=== PATIENT | male | born 1930 ===

== ENCOUNTER 2017-09-02 11:45 | Emergency (ER) | payer MEDICARE ==
[2017-09-02 12:40] VITALS: BP 131/80; PULSE 62; RESP 16; TEMP 98.3; O2SAT 96
[2017-09-02] MEDS ORDERED: Tmp-Smz 800 mg-160 mg DS Tab PO STA (13:16)
--- NOTE | 2017-09-02 13:16 | ED PDOC ---
Arrival/HPI - General Chief Complaint: Abnormal Skin Integrity Time Seen by Provider: 09/02/17 11:53 Historian: Patient - History of Present Illness Narrative History of Present Illness (Text): 09/02/17 13:13 A 87 year old male, who denies any significant past medical, presents to the emergency department with complaints of mass on his back that he found 3 weeks ago and now it is draining. The patient notes he's felt feverish for the last week, but never took his temperature. He denies any chest pain, nausea, vomiting , diarrhea, or any other complaints at this time. Time/Duration: > week (x 3 weeks) Symptom Onset: Gradual Symptom Course: Unchanged Activities at Onset: Light Context: Home Past Medical History - Provider Review Nursing Documentation Reviewed: Yes - Cardiac Hx Cardiac Disorders: No - Pulmonary Hx Respiratory Disorders: Yes Hx Asthma: Yes - Neurological Hx Neurological Disorder: No - HEENT Hx HEENT Disorder: Yes Other/Comment: L CORNEAL TRANSPLANT - Renal Hx Renal Disorder: No - Endocrine/Metabolic Hx Endocrine Disorders: No - Hematological/Oncological Hx Blood Disorders: No - Integumentary Hx Dermatological Disorder: Yes - Musculoskeletal/Rheumatological Hx Musculoskeletal Disorders: No - Gastrointestinal Hx Gastrointestinal Disorders: No - Genitourinary/Gynecological Hx Genitourinary Disorders: Yes Hx Prostate Problems: Yes - Psychiatric Hx Psychophysiologic Disorder: No Hx Substance Use: No - Surgical History Hx Eye Surgery: Yes - Anesthesia Hx Anesthesia: Yes Family/Social History - Physician Review Nursing Documentation Reviewed: Yes Family/Social History: No Known Family HX Smoking Status: Former Smoker Hx Alcohol Use: No Hx Substance Use: No Allergies/Home Meds Allergies/Adverse Reactions: Allergies No Known Allergies Allergy (Verified 09/02/17 12:25) Home Medications: Home Meds Medication Instructions Recorded Confirmed Bimatoprost [Lumigan] 1 drop LEFTEYE BID 09/02/17 09/02/17 Tamsulosin [Flomax] 1 cap PO DAILY 09/02/17 09/02/17 Review of Systems - Physician Review All systems were reviewed & negative as marked: Yes - Review of Systems Cardiovascular: absent: Chest Pain Gastrointestinal: absent: Diarrhea, Nausea, Vomiting Physical Exam - Physical Exam Narrative Physical Exam (Text): 09/02/17 13:16 Constitutional: No acute distress. Head: Normocephalic. Atraumatic. Eyes: PERRL. ENT: Moist mucous membranes. Neck: Supple. Cardiovascular: Regular rate. Chest: No tenderness. Respiratory: Clear to auscultation bilaterally. GI: Soft. Nontender. Nondistended. Back: No CVA tenderness. Musculoskeletal: No tenderness or swelling of extremities. Skin: Right flank fluctuant mass with swelling and surrounding erythema, central opening discharging pus. Neurologic: Alert, no focal deficit. Vital Signs Reviewed: Yes Vital Signs Temp Pulse Resp BP Pulse Ox 09/02/17 12:33 98.3 F 62 16 131/80 96 Temperature: Afebrile Blood Pressure: Normal Pulse: Regular Respiratory Rate: Normal Appearance: Positive for: Well-Appearing, Non-Toxic, Comfortable Pain Distress: None Mental Status: Positive for: Alert and Oriented X 3 Medical Decision Making ED Course and Treatment: 09/02/17 13:18 Progress Notes: Procedure: Incision & Drainage Performed by the emergency provider Indication: Abscess Location: Right Flank Preparation: Local infiltration of Lidocaine 1% without Epi was used for anesthesia. Procedure: The most fluctuant portion of the abscess was incised with a #11 scalpel. Approximately 5 cc of pus was obtained. The abscess was packed. A dressing was applied by the emergency provider. Post-Procedure: On exam the abscess is notably less fluctuant. The patient tolerated the procedure well, and there were no complications. Cultured: {YES } Patient will follow up with [facility] [place] [facility] in 2 days, instructed to return to ED if unable to be seen then. First dose antibiotics given here. No fever here, normal vital signs. - Medication Orders Current Medication Orders: Discontinued Medications Cephalexin Monohydrate (Keflex) 500 mg PO STAT STA PRN Reason: Protocol Stop: 09/02/17 13:17 Trimethoprim/Sulfamethoxazole (Bactrim Ds Tab) 1 tab PO STAT STA PRN Reason: Protocol Stop: 09/02/17 13:17 - Scribe Statement The provider has reviewed the documentation as recorded by the Jose Culp Provider Scribe Attestation: All medical record entries made by the Scribe were at my direction and personally dictated by me. I have reviewed the chart and agree that the record accurately reflects my personal performance of the history, physical exam, medical decision making, and the department course for this patient. I have also personally directed, reviewed, and agree with the discharge instructions and disposition. Disposition/Present on Arrival - Present on Arrival Any Indicators Present on Arrival: No History of DVT/PE: No History of Uncontrolled Diabetes: No Urinary Catheter: No History of Decub. Ulcer: No History Surgical Site Infection Following: None - Disposition Have Diagnosis and Disposition been Completed?: Yes Diagnosis: Abscess Disposition: HOME/ ROUTINE Disposition Time: 13:27 Patient Plan: Discharge Patient Problems: Current Active Problems Problem Status Onset Abscess Acute Condition: STABLE Discharge Instructions (ExitCare): Abscess Incision and Drainage (ED) Prescriptions: Cephalexin [cephalexin] 500 mg PO TID #30 cap Sulfamethoxazole/Trimethoprim [Bactrim DS 800 mg-160 mg] 1 tab PO BID #20 tab Referrals: [facility] [Outside] - Follow up with primary Forms: [employer] ([place])
== END 2017-09-02 13:45 | disposition home or self-care (01) ==
LOC: ED 11:45
DX: L02.211 Cutaneous abscess of abdominal wall (principal); Z87.891 Personal history of nicotine dependence

== ENCOUNTER 2018-03-21 13:37 | Inpatient (IN) | payer MEDICARE ==
[2018-03-21] MEDS ORDERED: Sodium Chloride 0.9% 500 ML IV STA (14:40)
--- NOTE | 2018-03-21 14:49 | ED PDOC ---
Arrival/HPI - General Historian: Patient <Zackery Hernandez A - Last Filed: 03/22/18 01:01> <Wilberto Be - Last Filed: 03/23/18 14:55> - General Chief Complaint: Dizziness/Lightheaded Time Seen by Provider: 03/21/18 14:31 - History of Present Illness Narrative History of Present Illness (Text): 03/21/18 14:46 88yo male with pmhx of Asthma and BPH who present with complaint of having near syncopal episode this morning. States he became dizzy when he stood up this morning and "almost passed out". He denies previous history. Denies positional dizziness, chest pain, SOB, focal weakness, visual changes, slurred speech, headache, nausea, vomiting, abdominal pain, any other complaint. (Zackery Hernandez A) Past Medical History - Provider Review Nursing Documentation Reviewed: Yes - Infectious Disease Hx of Infectious Diseases: None - Cardiac Hx Cardiac Disorders: No - Pulmonary Hx Respiratory Disorders: Yes Hx Asthma: Yes - Neurological Hx Neurological Disorder: No - HEENT Hx HEENT Disorder: Yes Other/Comment: L CORNEAL TRANSPLANT - Renal Hx Renal Disorder: No - Endocrine/Metabolic Hx Endocrine Disorders: No - Hematological/Oncological Hx Blood Disorders: No - Integumentary Hx Dermatological Disorder: Yes - Musculoskeletal/Rheumatological Hx Musculoskeletal Disorders: No - Gastrointestinal Hx Gastrointestinal Disorders: No - Genitourinary/Gynecological Hx Genitourinary Disorders: Yes Hx Prostate Problems: Yes - Psychiatric Hx Psychophysiologic Disorder: No Hx Substance Use: No - Surgical History Hx Eye Surgery: Yes - Anesthesia Hx Anesthesia: Yes <Zackery Hernandez A - Last Filed: 03/22/18 01:01> Family/Social History - Physician Review Nursing Documentation Reviewed: Yes Family/Social History: Unknown Family HX Smoking Status: Former Smoker Hx Alcohol Use: No Hx Substance Use: No <Zackery Hernandez A - Last Filed: 03/22/18 01:01> Allergies/Home Meds <Zackery Hernandez A - Last Filed: 03/22/18 01:01> <Wilberto Be - Last Filed: 03/23/18 14:55> Allergies/Adverse Reactions: Allergies No Known Allergies Allergy (Verified 03/22/18 00:01) Home Medications: Home Meds Medication Instructions Recorded Confirmed Bimatoprost [Lumigan] 1 drop LEFTEYE BID 09/02/17 03/21/18 Tamsulosin [Flomax] 1 cap PO DAILY 09/02/17 03/21/18 Albuterol HFA [Ventolin HFA 90 1 puff IH PRN PRN 03/21/18 03/21/18 mcg/actuation (8 g)] Review of Systems - Physician Review All systems were reviewed & negative as marked: Yes - Review of Systems Constitutional: Normal Eyes: Normal ENT: Normal Respiratory: Normal Cardiovascular: Normal Gastrointestinal: Normal Genitourinary Male: Normal Musculoskeletal: Normal Skin: Normal Neurological: Dizziness. absent: Headache, Focal Weakness, Gait Changes, Speech Changes, Facial Droop Endocrine: Normal Hemo/Lymphatic: Normal Psychiatric: Normal <Diru,Happiness A - Last Filed: 03/22/18 01:01> Physical Exam Vital Signs Reviewed: Yes Temperature: Afebrile Blood Pressure: Normal Pulse: Regular Respiratory Rate: Normal Appearance: Positive for: Well-Appearing, Non-Toxic, Comfortable Pain Distress: None Mental Status: Positive for: Alert and Oriented X 3 Finger Stick Blood Glucose: 98 - Systems Exam Head: Present: Atraumatic, Normocephalic Pupils: Present: PERRL Extroacular Muscles: Present: EOMI Conjunctiva: Present: Normal Mouth: Present: Moist Mucous Membranes Neck: Present: Normal Range of Motion Respiratory/Chest: Present: Clear to Auscultation, Good Air Exchange. No: Respiratory Distress, Accessory Muscle Use Cardiovascular: Present: Regular Rate and Rhythm, Normal S1, S2. No: Murmurs Abdomen: No: Tenderness, Distention, Peritoneal Signs Back: Present: Normal Inspection Upper Extremity: Present: Normal Inspection. No: Cyanosis, Edema Lower Extremity: Present: Normal Inspection. No: Edema Neurological: Present: GCS=15, CN II-XII Intact, Speech Normal, Motor Func Grossly Intact, Normal Sensory Function, Normal Cerebellar Funct, Norm Deep Tendon Reflexes, Normal 2Pt Descrimination, Other (No focal neurological deficit ) Skin: Present: Warm, Dry, Normal Color. No: Rashes Psychiatric: Present: Alert, Oriented x 3, Normal Insight, Normal Concentration <Diru,Happiness A - Last Filed: 03/22/18 01:01> Vital Signs Temp Pulse Resp BP Pulse Ox 03/21/18 16:33 50 L 15 137/75 99 03/21/18 14:06 98.2 F 60 18 130/60 96 03/21/18 13:56 98.8 F 68 18 134/74 98 Medical Decision Making <Zackery Hernandez - Last Filed: 03/22/18 01:01> <[place]Wil[place]to - Last Filed: 03/23/18 14:55> ED Course and Treatment: 03/22/18 01:02 PT present to ED for stated history. He was neurologically and hemodynamically stable in ED. Labs was reviewed and wnl CXR NAD EKG Head CT - No acute derangement Secondary to pt's age and complaint of near syncope, he will need MRI and Carotid US. Case was DW Dr. Beltran while she was in ED . she saw pt by the bedside. PT was admitted to her service. (Zackery Hernandez) - Lab Interpretations Lab Results: 03/21/18 14:30 03/21/18 14:30 Lab Results 03/21/18 14:30: Hemoglobin A1c 5.4 03/21/18 14:30: Iron 82, TIBC 309, % Saturation 26 03/21/18 14:30: Triglycerides 79, Cholesterol 144, LDL Cholesterol Direct 70, HDL Cholesterol 47, Vitamin B12 Cancelled, Folate Cancelled 03/21/18 14:30: Sodium 140, Potassium 4.3, Chloride 103, Carbon Dioxide 29, Anion Gap 13, BUN 15, Creatinine 0.8, Est GFR ( Amer) > 60, Est GFR (Non- Af Amer) > 60, Random Glucose 102, Calcium 8.8, Magnesium 2.2, Total Bilirubin 1.3, AST 17, ALT 26, Alkaline Phosphatase 94, Lactate Dehydrogenase 421, Total Creatine Kinase 48, Troponin I < 0.01, Total Protein 6.8, Albumin 4.0, Globulin 2.8, Albumin/Globulin Ratio 1.4 03/21/18 14:30: Urine Color Yellow, Urine Appearance Clear, Urine pH 6.0, Ur Specific Franklin 1.025, Urine Protein Trace H, Urine Glucose (UA) Negative, Urine Ketones Negative, Urine Blood Negative, Urine Nitrate Negative, Urine Bilirubin Negative, Urine Urobilinogen 0.2, Ur Leukocyte Esterase Negative, Urine RBC Negative, Urine WBC 0 - 2, Ur Epithelial Cells None, Urine Bacteria Trace 03/21/18 14:30: PT 11.2, INR 0.98, APTT 30.4 03/21/18 14:30: WBC 7.2, RBC 4.72, Hgb 14.4, Hct 41.9 L, MCV 88.8, MCH 30.5, MCHC 34.4, RDW 12.7, Plt Count 153, MPV 10.5, Gran % 64.5, Lymph % (Auto) 22.1, Levy % (Auto) 4.6, Eos % (Auto) 8.2 H, Baso % (Auto) 0.6, Gran # 4.63, Lymph # ( Auto) 1.6, Levy # (Auto) 0.3, Eos # (Auto) 0.6, Baso # (Auto) 0.04 03/21/18 14:10: POC Glucose (mg/dL) 98 - RAD Interpretation Radiology Orders: 03/21/18 14:39 CHEST PORTABLE [RAD] Stat 03/21/18 14:40 HEAD W/O CONTRAST [CT] Stat - Medication Orders Current Medication Orders: Albuterol Sulfate (Albuterol 0.083% Inhal Candida (2.5 Mg/3 Ml) Ud) 2.5 mg IH [id number] PRN PRN Reason: Shortness of Breath Cefpodoxime Proxetil (Vantin) 200 mg PO Q12 PENDING SALE TO [facility] Last Admin: 03/23/18 09:16 Dose: 200 mg Famotidine (Pepcid) 40 mg PO HS PENDING SALE TO [facility] Last Admin: 03/22/18 21:42 Dose: 40 mg Latanoprost (Xalatan Opht) 0 ml OS HS PENDING SALE TO [facility] Last Admin: 03/22/18 21:43 Dose: 2.5 ml Tamsulosin HCl (Flomax) 0.4 mg PO DAILY PENDING SALE TO [facility] Last Admin: 03/23/18 09:16 Dose: 0.4 mg Discontinued Medications Sodium Chloride (Sodium Chloride 0.9%) 500 mls @ 999 mls/hr IV .Q31M STA Stop: 03/21/18 15:10 Last Admin: 03/21/18 16:32 Dose: 999 mls/hr eMAR Start Stop Document 03/21/18 16:32 MR (Rec: 03/21/18 16:33 MR [id number]) Intravenous Solution Start Date 03/21/18 Start Time 16:33 End Date 03/21/18 End time 17:33 Total Infusion Time 60 Ceftriaxone Sodium (Rocephin 1 Gram Ivpb) 1 gm in 100 mls @ 100 mls/hr IVPB DAILY YUMIKO PRN Reason: Protocol Last Admin: 03/22/18 09:35 Dose: 100 mls/hr eMAR Start Stop Document 03/22/18 09:35 MF (Rec: 03/22/18 09:35 MF [id number]) Intravenous Solution Start Date 03/22/18 Start Time 09:35 Pneumococcal Polyvalent Vaccine (Pneumovax 23 Vaccine) 0.5 ml IM .ONCE ONE Stop: 03/22/18 00:19 Last Admin: 03/22/18 01:46 Dose: Immunization Registry Document 03/22/18 01:46 ST (Rec: 03/22/18 01:46 ST [id number]) Immunization Registry Consent Date 09/16/17 - PA / TECHNICAL DESIGNER / Resident Statement / has reviewed & agrees with the documentation as recorded. <Wilberto Be - Last Filed: 03/23/18 14:55> Disposition/Present on Arrival - Present on Arrival Any Indicators Present on Arrival: No History of DVT/PE: No History of Uncontrolled Diabetes: No Urinary Catheter: No History of Decub. Ulcer: No History Surgical Site Infection Following: None - Disposition Have Diagnosis and Disposition been Completed?: Yes Disposition Time: 14:55 Patient Plan: Admission <Zackery Hernandez - Last Filed: 03/22/18 01:01> <Wilberto Be - Last Filed: 03/23/18 14:55> - Disposition Diagnosis: Near syncope Disposition: HOSPITALIZED Patient Problems: Current Active Problems Problem Status Onset Near syncope Acute Condition: GOOD
[2018-03-21 15:15] LABS: BASO # 0.04 K/mm3 (0.0-2.0); BASO % 0.6 % (0.0-3.0); EOS # 0.6 (0.0-0.7); EOS % 8.2 % (1.5-5.0); GRAN # 4.63 (1.4-6.5); GRAN % 64.5 % (50.0-68.0); HEMOGLOBIN 14.4 g/dL (14.0-18.0); LYMPH # 1.6 (1.2-3.4); LYMPH % 22.1 % (22.0-35.0); MEAN CELL VOLUME 88.8 fl (80.0-105.0); MEAN CORPUSCULAR HEMOGLOBIN 30.5 pg (25.0-35.0); MEAN CORPUSCULAR HGB CONC 34.4 g/dl (31.0-37.0); MEAN PLATELET VOLUME 10.5 fl (7.0-11.0); MONO # 0.3 (0.1-0.6); MONO % 4.6 % (1.0-6.0); RBC 4.72 10^6/uL (3.5-6.1); RED CELL DISTRIBUTION WIDTH 12.7 % (11.5-14.5); WHITE BLOOD COUNT 7.2 10^3/ul (4.5-11.0)
[2018-03-21 15:17] LABS: URINE APPEARANCE CLEAR (CLEAR); URINE BILIRUBIN NEGATIVE (NEGATIVE); URINE BLOOD NEGATIVE (NEGATIVE); URINE COLOR YELLOW (YELLOW); URINE GLUCOSE (UA) NEGATIVE (NEGATIVE); URINE LEUKOCYTE ESTERASE NEGATIVE Leu/uL (NEGATIVE); URINE PROTEIN TRACE mg/dL (<30 mg/dL); URINE UROBILINOGEN 0.2 E.U./dL (<1 E.U./dL)
[2018-03-21 15:19] LABS: ALB/GLOB RATIO 1.4 (1.1-1.8); ALT/SGPT 26 U/L (7-56); AST/SGOT 17 U/L (17-59); BLOOD UREA NITROGEN 15 mg/dL (7-21); CALCIUM 8.8 mg/dL (8.4-10.5); GFR AFRICAN-AMERICAN > 60; GFR NON-AFRICAN AMERICAN > 60; INR 0.98; PARTIAL THROMBOPLASTIN TIME 30.4 Seconds (25.1-36.5); PROTHROMBIN TIME 11.2 SECONDS (9.4-12.5)
[2018-03-21 15:22] LABS: URINE BACTERIA TRACE (NEG); URINE RBC NEGATIVE /hpf (0-2); URINE WBC 0 - 2 /hpf (0-6)
[2018-03-21 15:30] LABS: TROPONIN I < 0.01 ng/mL
--- NOTE | 2018-03-21 15:43 | CT ---
Date of service: 03/21/2018 PROCEDURE: CT HEAD WITHOUT CONTRAST. HISTORY: Dizziness COMPARISON: None available. TECHNIQUE: Axial computed tomography images were obtained through the head/brain without intravenous contrast. Radiation dose: Total exam DLP = 953.53 mGy-cm. This CT exam was performed using one or more of the following dose reduction techniques: Automated exposure control, adjustment of the mA and/or kV according to patient size, and/or use of iterative reconstruction technique. FINDINGS: HEMORRHAGE: No intracranial hemorrhage. BRAIN: Rose-white matter differentiation is preserved. There is no mass, mass effect or abnormal extra-axial fluid collection. There is no territorial infarction. The midline sagittal structures are normal. VENTRICLES: There is mild age-related global parenchymal volume loss and proportionate enlargement of the ventricles and cortical sulci. CALVARIUM: The skull base and calvarium are normal. PARANASAL SINUSES: There is moderate chronic ethmoid and maxillary sinusitis, worse in the right maxillary sinus. MASTOID AIR CELLS: Predominantly clear. OTHER FINDINGS: None. IMPRESSION: No acute intracranial abnormality. If there is a persistent focal neurologic deficit and an ongoing clinical concern for acute infarction, an MRI of the brain without intravenous contrast would be a more sensitive modality for evaluation of hyperacute/acute ischemic infarction. Mild age-related global parenchymal volume loss. Chronic ethmoid and maxillary sinusitis, worse in the right maxillary sinus with
--- NOTE | 2018-03-21 17:44 | RAD ---
Date of service: 03/21/2018 HISTORY: admission COMPARISON: 07/20/2017. FINDINGS: LUNGS: No active pulmonary disease. PLEURA: No significant pleural effusion identified, no pneumothorax apparent. CARDIOVASCULAR: No radiographic findings to suggest acute or significant cardiovascular disease. OSSEOUS STRUCTURES: No significant abnormalities. VISUALIZED UPPER ABDOMEN: Normal. OTHER FINDINGS: None. IMPRESSION: No active disease. No significant interval change compared to the prior examination(s).
[2018-03-21] MEDS ORDERED: Albuterol 0.083% Inhal Sol (2.5 mg/3 mL) UD IH PRN (19:57)
[2018-03-21 20:58] LABS: HDL CHOLESTEROL 47 mg/dL (29-60); IRON 82 ug/dL (45-180)
[2018-03-21 21:08] LABS: % IRON SATURATION 26 % (20-55); TOTAL IRON BINDING CAPACITY 309 ug/dL (261-462)
[2018-03-21 21:09] LABS: LDL CHOLESTEROL 70 mg/dL (0-129)
[2018-03-21] MEDS: Latanoprost 2.5 ml Opht Soln OS SCH (21:46)
--- NOTE | 2018-03-21 21:46 | CARD ---
APPROVED REPORT Date of service: 03/21/2018 EKG Measurement Heart [id number] <Conclusion> Unusual P axis and short CA, probable junctional rhythm with premature atrial complexes Left axis deviation Abnormal ECG
[2018-03-22 00:18] VITALS: BMI 26.6
[2018-03-22] MEDS ORDERED: Pneumococcal 23-Valent Vaccine IM ONE (00:18)
[2018-03-22 07:06] LABS: HEMOGLOBIN 13.9 g/dL (14.0-18.0); MEAN CELL VOLUME 88.3 fl (80.0-105.0); MEAN PLATELET VOLUME 10.8 fl (7.0-11.0); RBC 4.63 10^6/uL (3.5-6.1); RED CELL DISTRIBUTION WIDTH 12.8 % (11.5-14.5); WHITE BLOOD COUNT 6.4 10^3/ul (4.5-11.0)
--- NOTE | 2018-03-22 07:18 | HP ---
date 03/21/18 Copied To: Zulma Beltran MD Attending MD: Zulma Beltran MD CHIEF COMPLAINT: Dizziness, lightheadedness. HISTORY OF PRESENT ILLNESS: Mr. Pete Murdock is an 88-year-old male with past medical history of asthma, BPH, came to the emergency room having near syncope episode. This morning, the patient states that he became dizzy when he stood up . He denies frequencies. He denies positional dizziness. No fever, no chills. No shortness of breath, no focal weakness, no vision changes, no slurring of speech. No headache, nausea, vomiting, abdominal pain or any other complaints. Discussion done with the physician assistant art director, PAST MEDICAL HISTORY: Asthma, cornea transplant, history of prostate problem, eye surgery. FAMILY HISTORY: Father and mother, noncontributory. HABITS: Former smoker. No drugs, no ethanol. ALLERGIES: THE PATIENT IS NOT ALLERGIC WITH ANY MEDICATIONS. HOME MEDICATIONS: Flomax, Ventolin. REVIEW OF SYSTEMS: The patient was seen and examined on the bedside in the emergency room, looking comfortable. Mainly complaining about dizziness and feeling of passing out. No focal weakness, no gait changes. No speech changes. No facial droops. No fever, no chills. PHYSICAL EXAMINATION VITAL SIGNS: Temperature 98.8, pulse 58, respiratory rate 18, blood pressure 134/74, pulse oximetry 98%. HEENT: Head normocephalic, atraumatic. Eyes, PERRLA. Extraocular muscles intact. Conjunctivae clear. Nose patent. Mucous membrane moist. NECK: Supple. No carotid bruit, JVD, or thyromegaly. CHEST: No chest pain. HEART: S1 and S2 positive. LUNGS: Clear to auscultation. ABDOMEN: Soft. Bowel sounds present. No organomegaly. EXTREMITIES: No edema. No cyanosis. NEUROLOGIC: The patient is awake and alert. Moving all four extremities. No focal deficit. LABORATORY DATA: White blood cell 7.2, hemoglobin 14.4, hematocrit 41.9, platelets 153. Sodium 140, potassium 4.3, BUN 15, creatinine 0.8. Liver function test within normal limits. Protein in the urine. ASSESSMENT AND PLAN: Mr. Pete Murdock is an 88-year-old male with proteinuria, history of asthma, hypertension, benign prostatic hypertrophy, came with near syncope. CAT scan of the head done. No acute intracranial abnormalities. Mild age-related global parenchymal volume loss, chronic ethmoid and maxillary sinusitis, worse in the right maxillary sinus. We will start with antibiotics. Gastrointestinal and deep venous thrombosis prophylaxis. We will start him on home medications. Repeat labs. We will follow up. Zulma Beltran MD MTDIva
[2018-03-22 07:33] LABS: BLOOD UREA NITROGEN 14 mg/dL (7-21); CALCIUM 8.6 mg/dL (8.4-10.5); GFR AFRICAN-AMERICAN > 60; GFR NON-AFRICAN AMERICAN > 60
[2018-03-22] MEDS ORDERED: cefTRIAXone 1 gm 1 GM/100 ML BAG IVPB SCH (10:00)
--- NOTE | 2018-03-22 10:40 | US ---
PROCEDURE: Bilateral carotid artery duplex ultrasound HISTORY: Carotid stenosis dizziness PHYSICIAN(S): Andrea Gutierrez MD. TECHNIQUE: Duplex sonography and color-flow Doppler were used to evaluate the carotid bifurcations and limited segments of the vertebral arteries bilaterally. The exam is somewhat limited by tortuous vessels. FINDINGS: There is mild smooth heterogeneous plaque noted at the carotid bifurcations bilaterally. The peak systolic velocity in the proximal right internal carotid artery is 59 cm/sec. This corresponds to a 20 to 39% proximal right ICA stenosis. Normal systolic velocities are noted in the proximal right external carotid artery. There is antegrade flow in the right vertebral artery. The peak systolic velocity in the proximal left internal carotid artery is 67 cm/sec. This corresponds to a 20 to 39% proximal left ICA stenosis. Normal systolic velocities are noted in the proximal left external carotid artery. There is antegrade flow in the left vertebral artery. IMPRESSION: 1. Bilateral 20-39% proximal ICA stenoses. 2. Antegrade flow in both vertebral arteries.
--- NOTE | 2018-03-22 11:06 | MRI ---
Date of service: 03/22/2018 PROCEDURE: MRI BRAIN WITHOUT CONTRAST HISTORY: dizz COMPARISON: None available. TECHNIQUE: Multiplanar, multisequence MR images of the brain were obtained without intravenous contrast enhancement. FINDINGS: HEMORRHAGE: None DWI: No evidence of an acute or early subacute infarction. BRAIN PARENCHYMA: No mass effect or edema. No atrophy or chronic microvascular ischemic changes. VENTRICLES: Unremarkable. No hydrocephalus. CRANIUM: Unremarkable. ORBITS: Grossly unremarkable. PARANASAL SINUSES/MASTOIDS: There is mucosal thickening in the right maxillary sinus and the ethmoid sinuses bilaterally VASCULAR SYSTEM: Skull base flow voids intact. OTHER FINDINGS: None. IMPRESSION: No acute intracranial findings
[2018-03-22 13:07] LABS: FOLATE 8.2 ng/mL
--- NOTE | 2018-03-22 16:24 | CON ---
Copied To: Tre Turk MD Attending MD: Tre Turk MD DATE: 03/22/2018 NEUROLOGY CONSULTATION CHIEF COMPLAINT: Dizziness. HISTORY OF PRESENT ILLNESS: This is an 88-year-old man with past medical history of asthma, BPH who complained of having near syncopal events in terms of feeling dizzy and lightheaded, when he stood up in the morning almost felt like he was going to pass out. No history of any seizures. His MRI of the brain showed no acute intracranial abnormality. He had a low heart rate ranging from 38-59 indicating severe bradycardia likely the cause of his symptoms. Carotid Doppler showed 20%-39% proximal ICA stenosis with antegrade flow in the vertebral arteries bilaterally. PAST MEDICAL HISTORY: As above. SOCIAL HISTORY: No illicit drug use, smoking, or EtOH abuse. ALLERGIES: NO KNOWN DRUG ALLERGIES. MEDICATIONS: Reviewed by nurse per reconciliation sheet. REVIEW OF SYSTEMS: A 14-point review of systems is negative except as per the HPI. LABORATORY DATA: Sodium is 140, potassium 4, chloride 107, carbon dioxide 28, BUN of 14, creatinine of 0.8. Random glucose of 84. A1c of 5.4. B12 of 342. PHYSICAL EXAMINATION VITAL SIGNS: Temperature 97.8, pulse rate of 38, blood pressure 120/49, respiratory rate of 18, oxygen saturation 97% via room air. GENERAL: The patient is sitting up in bed, in no acute distress. HEENT: Head is atraumatic, normocephalic. PERRLA. Extraocular muscles intact. NECK: Supple. No JVD, no adenopathy noted. LUNGS: Clear to auscultation. No adventitious sounds. HEART: S1 and S2, normal rate and rhythm. No murmurs, rubs or gallops. ABDOMEN: Soft, nontender, nondistended. Bowel sounds present. EXTREMITIES: No clubbing, no cyanosis. Peripheral pulses are 2+ felt bilaterally. NEUROLOGIC: The patient is alert, oriented to person, place, month and year. Speech is fluent without any errors. Cranial nerves II through XII intact. Motor exam: Moves all extremities equally. Toes are downgoing bilaterally. Sensory exam: Light touch, pinprick, proprioception and vibration intact. DTRs are 2+ throughout. Coordination: [id number]-mr-erar intact. Gait is deferred for now. ASSESSMENT AND PLAN: This is an 88-year-old man with history of benign prostatic hypertrophy, asthma who presented with dizziness in terms of near syncopal event, found to have significant bradycardia. At this time, I feel like the near syncopal event/dizziness is most likely secondary to symptomatic bradycardia. We will recommend Cardiology followup and echocardiogram. MRI of the brain showed no acute intracranial abnormality. Neuro exam is nonfocal. Carotid Doppler showed no significant hemodynamic stenosis. At this time, we recommend: 1. Baby aspirin 81 mg p.o. daily. 2. Hold any beta blockers given that the patient has bradycardia. 3. Cardiology consult/followup in regards to his underlying bradycardia and continue with current present medical management, PT/OT assessment and keep systolic blood pressure of 130s-140s and diastolic 70s-80s. Thank you for this consult. Tre Turk MD
--- NOTE | 2018-03-22 17:26 | CON ---
Copied To: Tray Francis MD Attending MD: Tray Francis MD DATE: 03/22/2018 LOCATION: The patient in room 272, bed 2. REASON FOR CONSULTATION: Dizziness, near syncope. HISTORY OF PRESENT ILLNESS: The patient is an 88-year-old male admitted with the history that he is getting episodes of dizziness in which sometimes room starts spinning and sometimes he feels like that he is going to pass out, but he had no syncopal episode. Denies any nausea, vomiting, headache, palpitations, chest pain, shortness of breath associated with these episodes. The patient known to have asthma. The patient denies any history of exertional chest pains or PND. PAST MEDICAL HISTORY: Positive for asthma, has cornea transplant. The patient is also being treated for prostate problems. PERSONAL HISTORY: The patient used to smoke 3 packs a day for about 40 years, he stopped roughly about 30 years ago. Denies drinking. ALLERGIES: THE PATIENT DENIES ANY ALLERGY TO MEDICATIONS. HE SAYS SOMETIMES HE HAS ALLERGY TO DUST. MEDICATIONS AT HOME: The patient was on Ventolin and Flomax. REVIEW OF SYSTEMS: All the systems were reviewed. Positive mentioned in the history, others were negative. PHYSICAL EXAMINATION: VITAL SIGNS: Blood pressure 147/82, respirations 18, pulse 53, temperature 97.8. HEENT: Head is normocephalic. Eyes: Pupils normal. Conjunctivae normal. Nose and throat normal. NECK: JVP low, carotids equal. THORAX: AP diameter normal. CARDIOVASVULAR: S1, S2. LUNGS: Clear. ABDOMEN: Soft, no tenderness, no organomegaly. Bowel sounds normal. EXTREMITIES: No clubbing, no cyanosis. LABORATORY DATA: Shows WBC 6.4, hemoglobin 13.9, hematocrit 40.9, platelets 148. Sodium 140, potassium 4, BUN 14, creatinine 0.8, triglycerides 79, cholesterol 144, HDL 47, LDL 70, TSH 1.84. EKG showed junctional rhythm and PJC's. Heart rate on cardiogram 57 per minute. Chest x-ray no active disease. CAT scan of the head, no acute intracranial abnormality, age-related global parenchymal volume loss. Carotid ultrasound showed bilateral 20 to 39% proximal ICA stenosis. Brain MRI showed no acute intracranial findings. DIAGNOSES: Dizziness, near syncope, junctional rhythm on EKG, rule out cardiac arrhythmia. PLAN: The patient on telemetry. We will continue to monitor him closely and also with 24-hour Holter monitor and do an echocardiogram. The patient on famotidine 40 mg p.o. at bedtime, Vantin 200 mg every 12 hours. We will monitor with you and follow with you. Tray Francis MD
--- NOTE | 2018-03-22 17:31 | CARD ---
APPROVED REPORT Date of service: 03/22/2018 EXAM: Two-dimensional and M-mode echocardiogram with Doppler and color Doppler. INDICATION Syncope 2D DIMENSIONS Left Atrium (2D)4.1 (1.6-4.0cm)IVSd1.2 (0.7-1.1cm) LVDd4.5 (3.9-5.9cm)PWd1.1 (0.7-1.1cm) M-Mode DIMENSIONS Aortic Root3.60 (2.2-3.7cm)Aortic Cusp Exc.1.90 (1.5-2.0cm) Aortic Valve AoV Peak Oimegbmu711.0cm/Petey Peak GR.9mmHg Mitral Valve MV E Sifqdkxj70.2cm/sMV A Oidqzdln71.3cm/sE/A ratio0.7 TDI Lateral E' Peak V6.63cm/sMedial E' Peak V5.36cm/sE/Lateral E'8.8 E/Medial E'10.9 Pulmonary Valve PV Peak Qngstxjw45.8cm/sPV Peak Grad.1mmHg Tricuspid Valve TR Peak Xswjzogp221hi/sRAP WWHZLYCJ45ilScVA Peak Gr.39mmHg SIOX11aeQg LEFT VENTRICLE The left ventricle is normal size. There is borderline concentric left ventricular hypertrophy. mildly decreased to pipo Normal. EF-45-50% There is mild hypokinesis in the apical anterior wall. Transmitral Doppler flow pattern is Grade III-reversible restrictive diastolic dysfunction. No left ventricle thrombus noted on this study. There is no ventricular septal defect visualized. There is no left ventricular aneurysm. There is no mass noted in the left ventricle. RIGHT VENTRICLE The right ventricle is normal size. There is normal right ventricular wall thickness. The right ventricular systolic function is normal. ATRIA The left atrium is borderline dilated. The right atrium size is normal. The interatrial septum is intact with no evidence for an atrial septal defect. AORTIC VALVE The aortic valve is thickened but opens well. There is trace aortic regurgitation. There is no aortic valvular stenosis. There is no aortic valvular vegetation. MITRAL VALVE The mitral valve is thickened but opens well. Mitral regurgitation is mild to moderate ( multiple Jets) There is no mitral valve stenosis. There is no evidence of mitral valve prolapse. TRICUSPID VALVE The tricuspid valve leaflets are thickened , but open well. There is mild to Moderate tricuspid regurgitation.RVSP-49 mmof Hg. There is no tricuspid valve stenosis. There is no tricuspid valve prolapse or vegetation. PULMONIC VALVE The pulmonary valve is normal in structure. Trivial PI There is no pulmonic valvular stenosis. GREAT VESSELS The aortic root is normal in size. The ascending aorta is normal in size. The pulmonary artery is normal. The IVC is normal in size and collapses >50% with inspiration. PERICARDIAL EFFUSION Trivial pleural effusion. There is no pericardial effusion. <Conclusion> The left ventricle is normal size. There is borderline concentric left ventricular hypertrophy. mildly decreased to pipo Normal. EF-45-50% Mitral regurgitation is mild to moderate ( multiple Jets) There is mild to Moderate tricuspid regurgitation.RVSP-49 mmof Hg. The IVC is normal in size and collapses >50% with inspiration. There is no pericardial effusion.
[2018-03-22] MEDS: Latanoprost 2.5 ml Opht Soln OS SCH (21:43)
--- NOTE | 2018-03-23 04:25 | PN ---
Copied To: Zulma Beltran MD Attending MD: Zulma Beltran MD DATE: 03/22/2018 SUBJECTIVE: Patient looks comfortable. Dizziness is better. Lightheadedness better. No shortness of breath. No chest pain. No fever. No chills. No hematuria. No hematochezia. No swelling of the legs. A 12-point review of systems is negative except above. PHYSICAL EXAMINATION: VITAL SIGNS: Temperature 97.9, pulse 38, blood pressure 120/49, respiratory rate 18, oxygen saturation 97% on room air. HEENT: Head normocephalic, atraumatic. Eyes, PERRLA. Extraocular muscles intact. Conjunctivae clear. Nose patent. Mucous membrane moist. NECK: Supple. No carotid bruit, JVD or thyromegaly. CHEST: Bilaterally symmetrical. HEART: S1 and S2 positive. Normal rate and rhythm. LUNGS: Clear to auscultation. No adventitious sounds. ABDOMEN: Soft. Bowel sounds present. No organomegaly. EXTREMITIES: No edema. No cyanosis. NEUROLOGIC: Patient is awake, alert, oriented x3. Moving all 4 extremities. LABORATORY DATA: Sodium 140, potassium 4, BUN 14, creatinine 0.8, glucose 84. Hemoglobin A1c is 5.4. B12 of 14. ASSESSMENT AND PLAN: Mr. Pete Murdock is an 88-year-old male with benign prostatic hypertrophy, asthma, came with dizziness, in terms of near syncope, found to have significant bradycardia. At this time, I feel like near syncopal event. Dizziness most likely secondary to the symptomatic bradycardia. Brazing Machine Operator is on the case. Holter monitor is put, we will wait 24 hours. MRI of the brain showed no acute intracranial abnormalities. Neurology exam is nonfocal. Carotid Doppler showed no significant hemodynamic stenosis. Patient's neurologist recommended aspirin, hold beta-blockers. Brazing Machine Operator is on the case for bradycardia. Physical therapy and occupational therapy. History of hypertension. Reviewed Dr. Tre Turk's notes. Reviewed Dr. Tray Francis's notes also. Junctional rhythm on EKG, rule out cardiac arrhythmias. Continue to monitor very closely, a 24-hour Holter monitor, then we will do an echocardiography. Gastrointestinal and deep vein thrombosis prophylaxes. Continue famotidine for gastrointestinal prophylaxis. Ventolin because history of, asthma and hypertension. Repeat labs. We will follow up. Zulma Beltran MD
[2018-03-23] MEDS: Cefpodoxime (Vantin) 200 mg Tab PO SCH ×2 (09:16→21:34)
[2018-03-23] MEDS: Latanoprost 2.5 ml Opht Soln OS SCH (21:35)
[2018-03-24] MEDS: Cefpodoxime (Vantin) 200 mg Tab PO SCH ×2 (10:05→21:33)
[2018-03-24] MEDS: Latanoprost 2.5 ml Opht Soln OS SCH (21:34)
--- NOTE | 2018-03-24 22:54 | PN ---
Copied To: Zulma Beltran MD Attending MD: Zulma Beltran MD DATE: 03/24/2018 SUBJECTIVE: Patient is an 88-year-old male. Patient is looking comfortable. No nausea, vomiting, diarrhea. No hematuria or hematochezia. No swelling of the legs. No chest pain. No palpitation. No headache or dizziness. No fever. No chills. PHYSICAL EXAMINATION: VITAL SIGNS: Temperature 98.9, pulse 80, blood pressure 151/87, respiratory rate 20. HEENT: Head: Normocephalic, atraumatic. Eyes: PERRLA. Extraocular muscles intact. Conjunctivae clear. Nose patent. Mucous membrane moist. NECK: Supple. No carotid bruit, JVD, or thyromegaly. CHEST: Bilaterally symmetrical. HEART: S1 and S2 positive. LUNGS: Clear to auscultation. ABDOMEN: Soft. Bowel sounds present. No organomegaly. EXTREMITIES: No edema. No cyanosis. NEUROLOGIC: Patient is awake and alert. Moving all 4 extremities. No focal deficit. MEDICATIONS: Albuterol, Flomax, Pepcid, Vantin, LABORATORY DATA: White blood cells 6.4, hemoglobin 13.9, hematocrit 40.9, platelets 148. Sodium 140, potassium 4, BUN 14, creatinine 0.8, glucose 84. ASSESSMENT AND PLAN: Mr. Pete Murdock is an 88-year-old male with anemia, proteinuria, history of asthma, benign prostatic hypertrophy. Came with near syncopal attacks in terms of feeling dizzy and lightheadedness. Seen by the payloader machine operator and neurologist. Baby aspirin given. Hold beta-blockers. Patient has symptomatic bradycardia. Got Holter monitor, results are pending. Out of bed. Physical therapy. We will follow up. Zulma Beltran MD MTDD
--- NOTE | 2018-03-25 07:59 | CP.PCM.PN ---
Subjective - Date & Time of Evaluation Date of Evaluation: 03/25/18 Time of Evaluation: 06:30 - Subjective Subjective: Awake, alert , denies any dizziness, constipated Reason for consultation and follow up: Cardiac evaluation of syncope, history of asthma nad BPH Seen and examined by me and Dr. Rosales 88yo male with pmhx of Asthma and BPH who present with complaint of having near syncopal episode this morning. States he became dizzy when he stood up this morning and "almost passed out". He denies previous history. Denies positional dizziness, chest pain, SOB, focal weakness, visual changes, slurred speech, headache, nausea, vomiting, abdominal pain, any other complaint. Objective - Vital Signs/Intake and Output Vital Signs (last 24 hours): Temp Pulse Resp BP Pulse Ox 97.9 F 66 20 145/94 H 99 03/25/18 05:54 03/25/18 05:54 03/25/18 05:54 03/25/18 05:54 03/25/18 05:54 Intake and Output: 03/25/18 03/25/18 06:59 18:59 Intake Total 120 Balance 120 - Medications Medications: Current Medications Albuterol Sulfate (Albuterol 0.083% Inhal Candida (2.5 Mg/3 Ml) Ud) 2.5 mg IH [id number] PRN PRN Reason: Shortness of Breath Cefpodoxime Proxetil (Vantin) 200 mg PO Q12 [facility] Last Admin: 03/24/18 21:33 Dose: 200 mg Famotidine (Pepcid) 40 mg PO HS [facility] Last Admin: 03/24/18 21:33 Dose: 40 mg Latanoprost (Xalatan Opht) 0 ml OS HS [facility] Last Admin: 03/24/18 21:34 Dose: 2.5 ml Tamsulosin HCl (Flomax) 0.4 mg PO DAILY [facility] Last Admin: 03/24/18 10:05 Dose: 0.4 mg - Labs Labs: 03/22/18 06:30 03/22/18 06:30 PT 11.2 SECONDS (9.4-12.5) 03/21/18 14:30 INR 0.98 03/21/18 14:30 APTT 30.4 Seconds (25.1-36.5) 03/21/18 14:30 - Constitutional Appears: No Acute Distress - Head Exam Head Exam: NORMOCEPHALIC - Eye Exam Eye Exam: Normal appearance - ENT Exam ENT Exam: Mucous Membranes Moist - Respiratory Exam Respiratory Exam: Decreased Breath Sounds, Clear to Ausculation Bilateral, NORMAL BREATHING PATTERN - Cardiovascular Exam Cardiovascular Exam: Bradycardia, +S1, +S2 - GI/Abdominal Exam GI & Abdominal Exam: Soft, Normal Bowel Sounds Additional comments: constipated - Neurological Exam Neurological Exam: Alert, Awake, Oriented x3 - Psychiatric Exam Psychiatric exam: Normal Affect - Skin Skin Exam: Intact, Warm Assessment and Plan - Assessment and Plan (Free Text) Assessment: A 88 year old male who came in to the ER due to near syncope. History of asthma and BPH, left corneal transplant,former smoker. Plan: On Holter monitor, will follow result Telemetry sinus bradycardia -49's Echo showed LVEF of 45-50% Moderate MR/TR Carotid studies 20-39% proximal ICA stenosis Blood pressure controlled Continue current medications Continue current treatment Will follow up plan and treatment discussed with Dr. Rosales
[2018-03-25] MEDS ORDERED: Magnesium Citrate Oral SOL (300 ml) PO ONE (08:24)
--- NOTE | 2018-03-25 08:49 | PN ---
Copied To: Zulma Beltran MD Attending MD: Zulma Beltran MD DATE: 03/23/2018 SUBJECTIVE: Patient is an 88-year-old male. Patient is looking comfortable. No nausea, vomiting, or diarrhea. No hematuria or hematochezia. No swelling of the leg. No chest pain. No headache. No dizziness. No fever. No chills. PHYSICAL EXAMINATION: VITAL SIGNS: Temperature 97.9, pulse 45, blood pressure 130/73, respiratory rate 20. HEENT: Head: Normocephalic, atraumatic. Eyes: PERRLA. Extraocular muscles intact. Conjunctivae clear. Nose patent. Mucous membrane moist. NECK: Supple. No carotid bruit. No JVD or thyromegaly. CHEST: Bilaterally symmetrical. HEART: S1 and S2 positive. LUNGS: Clear to auscultation. ABDOMEN: Soft. Bowel sounds present. No organomegaly. EXTREMITIES: No edema. No cyanosis. NEUROLOGIC: Patient is awake and alert. Moving all 4 extremities. No focal deficit. MEDICATIONS: Albuterol, Flomax, Pepcid, Vantin, Xalatan ophthalmic solution. LABORATORY DATA: White blood cells 6.4, hemoglobin 13.9, hematocrit 40.9, platelets 148. Sodium 140, potassium 4, BUN 14, creatinine 0.8, glucose 84. ASSESSMENT AND PLAN: Mr. Pete Murdock is an 88-year-old male with anemia, symptomatic bradycardia, history of benign prostatic hypertrophy, asthma, near syncope. According to the neurologist, dizziness looks like secondary to maybe bradycardia or hypotension. Cardiovascular Specialist is on the case. Holter monitor provided. MRI of the brain, bilateral carotid Doppler of the neck done. Neurologist is on the case. Gastrointestinal and deep vein thrombosis prophylaxes. Repeat labs. We will follow up. Zulma Beltran MD
[2018-03-25] MEDS: Cefpodoxime (Vantin) 200 mg Tab PO SCH ×2 (09:02→23:30)
--- NOTE | 2018-03-25 22:03 | PN ---
Copied To: Zulma Beltran MD Attending MD: Zulma Beltran MD DATE: 03/25/2018 SUBJECTIVE: The patient is seen and examined on the bedside, looking comfortable. No nausea, vomiting, diarrhea. No hematuria or hematochezia. No swelling of the legs. No chest pain. No palpitation. No headache. Dizziness is better, but he is becoming dizzy when he is standing up and having feeling of passing out once in a while. No fever. No chills. PHYSICAL EXAMINATION: VITAL SIGNS: Temperature 97.9, pulse 66, respiratory rate 20, blood pressure 147/94, pulse oximetry 99. HEENT: Head normocephalic, atraumatic. Eyes PERRLA. Extraocular muscles are intact. Conjunctivae clear. Nose patent. Mucous membrane moist. NECK: Supple. No carotid bruit. No JVD or thyromegaly. CHEST: Bilaterally symmetrical. HEART: S1 and S2 positive. LUNGS: Clear to auscultation. ABDOMEN: Soft. Bowel sounds positive. No organomegaly. EXTREMITIES: No edema. No cyanosis. NEUROLOGICAL: The patient is awake and alert. Moving all 4 extremities. No focal deficits. MEDICATIONS: Albuterol, Vantin, Pepcid, eye drops, Flomax. LABORATORY DATA: White blood cells are 6.4, hemoglobin 13.9, hematocrit 40.9, platelets 148. Sodium 140, potassium 4, BUN 14, creatinine 0.8, glucose 84. ASSESSMENT AND PLAN: Mr. Pete Murdock, 88-year-old male with anemia. Came to the emergency room due to near syncope, history of asthma, benign prostatic hypertrophy, left corneal transplant, former smoker, on Holter monitor. Telemetry shows sinus bradycardia, may be that his feelings are due to symptomatic bradycardia. Echocardiogram shows left ventricular ejection fraction of 45-50, moderate mitral regurgitation and tricuspid regurgitation. Carotid study shows 20-39% proximal internal carotid artery stenosis. Continue current medication asked by Cardiology. Neurologist is on the case also. The patient is seen by Dr. Tre Turk. Physical therapy. Out of bed. Repeat labs. We will follow up. Zulma Beltran MD [facility] # [id number]
[2018-03-25] MEDS: Latanoprost 2.5 ml Opht Soln OS SCH (23:30)
[2018-03-26 07:10] LABS: HEMOGLOBIN 14.1 g/dL (14.0-18.0); MEAN CELL VOLUME 88.4 fl (80.0-105.0); MEAN CORPUSCULAR HEMOGLOBIN 29.8 pg (25.0-35.0); MEAN CORPUSCULAR HGB CONC 33.7 g/dl (31.0-37.0); MEAN PLATELET VOLUME 10.4 fl (7.0-11.0); RBC 4.73 10^6/uL (3.5-6.1); RED CELL DISTRIBUTION WIDTH 12.7 % (11.5-14.5); WHITE BLOOD COUNT 6.8 10^3/ul (4.5-11.0)
[2018-03-26 07:24] LABS: BLOOD UREA NITROGEN 17 mg/dL (7-21); CALCIUM 8.5 mg/dL (8.4-10.5); GFR AFRICAN-AMERICAN > 60; GFR NON-AFRICAN AMERICAN > 60
--- NOTE | 2018-03-26 07:40 | CP.PCM.PN ---
Subjective - Date & Time of Evaluation Date of Evaluation: 03/26/18 Time of Evaluation: 06:40 - Subjective Subjective: Awake, alert , ambulating to bathroom Reason for consultation and follow up: Cardiac evaluation of syncope, history of asthma and BPH Seen and examined by me and Dr. Rosales Objective - Vital Signs/Intake and Output Vital Signs (last 24 hours): Temp Pulse Resp BP Pulse Ox 98.2 F 58 L 16 144/72 98 03/26/18 06:00 03/26/18 06:00 03/26/18 06:00 03/26/18 06:00 03/26/18 06:00 Intake and Output: 03/26/18 03/26/18 06:59 18:59 Intake Total 440 Balance 440 - Medications Medications: Current Medications Albuterol Sulfate (Albuterol 0.083% Inhal Candida (2.5 Mg/3 Ml) Ud) 2.5 mg IH [id number] PRN PRN Reason: Shortness of Breath Cefpodoxime Proxetil (Vantin) 200 mg PO Q12 [facility] Last Admin: 03/25/18 23:30 Dose: 200 mg Cyanocobalamin (Vitamin B12 1000 Mcg Tab) 1,000 mcg PO DAILY [facility] Famotidine (Pepcid) 40 mg PO HS [facility] Last Admin: 03/25/18 23:30 Dose: 40 mg Latanoprost (Xalatan Opht) 0 ml OS HS [facility] Last Admin: 03/25/18 23:30 Dose: 2.5 ml Tamsulosin HCl (Flomax) 0.4 mg PO DAILY [facility] Last Admin: 03/25/18 09:03 Dose: 0.4 mg - Labs Labs: 03/26/18 06:30 03/26/18 06:30 PT 11.2 SECONDS (9.4-12.5) 03/21/18 14:30 INR 0.98 03/21/18 14:30 APTT 30.4 Seconds (25.1-36.5) 03/21/18 14:30 - Constitutional Appears: No Acute Distress - Eye Exam Eye Exam: Normal appearance - ENT Exam ENT Exam: Mucous Membranes Moist - Respiratory Exam Respiratory Exam: Decreased Breath Sounds, NORMAL BREATHING PATTERN - Cardiovascular Exam Cardiovascular Exam: +S1, +S2 - GI/Abdominal Exam GI & Abdominal Exam: Soft, Normal Bowel Sounds - Extremities Exam Extremities Exam: Normal Capillary Refill - Neurological Exam Neurological Exam: Alert, Awake, Oriented x3 - Psychiatric Exam Psychiatric exam: Normal Affect - Skin Skin Exam: Dry, Warm Assessment and Plan - Assessment and Plan (Free Text) Assessment: A 88 year old male who came in to the ER due to near syncope. History of asthma and BPH, left corneal transplant,former smoker. Echo showed LVEF of 45-50%, Moderate MR/TR. Carotid studies 20-39% proximal ICA stenosis, on holter monitor, Constipated, Mg citrate given with positive bowel movement. Plan: Feels good, no distress,denies dizziness Constipated yesterday Mg Citrate given with positive bowel movement Will start stool softener On Holter monitor, will follow result Telemetry sinus bradycardia/junctional rhythm -40's-50's Blood pressure controlled Continue current medications Continue current treatment Will follow up plan and treatment discussed with Dr. Rosales
[2018-03-26 09:01] VITALS: RESP 18; O2SAT 99
[2018-03-26] MEDS: Cefpodoxime (Vantin) 200 mg Tab PO SCH (09:11)
[2018-03-26 11:37] VITALS: BP 137/80; PULSE 41; TEMP 98.6
--- NOTE | 2018-03-26 12:03 | CARD ---
APPROVED REPORT Date of service: 03/26/2018 Reason for Test: SYNCOPE Hookup date: 2018-03-22 Scan date: 2018-03-26 Recording time: 23 HR 59 MIN Heart Rate Data Total Beats: [id number] Min HR: 34 BPM at 4:04AM Avg HR: 53 BPM Max HR: 88 BPM at 8:16PM Supraventricular Ectopy Total VE Beats: 02020 (32.7%) Atrial Pairs: 11 Events Drop/Late: 0/7 Longest R-R: 1.9 sec at 1:11 PM Single PAC's: 6037 Bi/Trigeminy: [id number] Beats Conclusion SINUS RHYTHM / SINUS BRADYCARDIA MINIMUM HR 34 BPM MAXIMUM HR 88 BPM FREQUENT APC'S, ISOLATED PAIRED DIARY WAS NOT AVAILABLE.
--- NOTE | 2018-03-28 08:16 | DS ---
Copied To: Zulma Beltran MD Attending MD: Zulma Beltran MD CHIEF COMPLAINT: Dizziness . HISTORY OF PRESENT ILLNESS: Mr. Pete Murdock is an 88-year-old male with past medical history of asthma, hypertension, BPH came to the Emergency room Department with near syncope feeling this morning. The patient states that he became dizzy when he stood up. He denies frequencies. He denies positional dizziness. No fever, no chills. No nausea, vomiting or diarrhea. We admitted the patient. We did CAT scan of the head, carotid ultrasound, echocardiograph, brain MRI also. The patient did very well. History of BPH, hypertension, hypercholesterolemia, asthma, retina transplant and history of prostate problem, got treatment here. FAMILY HISTORY: Father and mother, noncontributory. HABITS: Used to be a smoker of three packs per day for about 40 years, he stopped roughly about 30 years ago. Denies drinking, smoking and drugs. ALLERGIES: THE PATIENT IS ALLERGIC TO MEDICATIONS. HE STATES SOMETIMES HE HAS ALLERGY TO DUST. HOME MEDICATIONS: Vantin, Flomax, eye drops. REVIEW OF SYSTEMS: The patient was seen and examined at the bedside, looking comfortable. No nausea, vomiting, diarrhea. No hematuria or hematochezia. No swelling of the legs. No chest pain or palpitation. No headache or dizziness. PHYSICAL EXAMINATION: VITAL SIGNS: Blood pressure 147/82, temperature 97.8. HEENT: Head normocephalic, atraumatic. Eyes: PERRLA. Extraocular muscles intact. Conjunctivae clear. Nose patent. Mucous membrane moist. NECK: Supple. No carotid bruit. No JVD or thyromegaly. CHEST: Bilaterally symmetrical. HEART: S1, S2 positive. LUNGS: Clear to auscultation. ABDOMEN: Soft. Bowel sounds positive. No organomegaly. EXTREMITIES: No edema. No cyanosis. NEUROLOGICAL: The patient is awake and alert, moving all four extremities. No focal deficits. LABORATORY DATA: White blood cells 6.4, hemoglobin 13.9, hematocrit 40.9, platelets 140. Sodium 140, potassium 4, BUN 14, creatinine 0.8. Triglycerides 79. Blood sugar of 144. EKG showed junctional rhythm and PJCs, heart rate per minute. Chest x-ray with no active disease. CAT scan of the head, no acute intracranial hemorrhage, age-related volume loss. Carotid ultrasound. ASSESSMENT AND PLAN: Dizziness, near syncope, junctional rhythm on EKG and rule out cardiac arrhythmia. The patient is on giving all medications, filled out . GI and DVT prophylaxis. Repeat labs. We will follow up. Zulma Beltran MD
== END 2018-03-26 12:35 | disposition home or self-care (01) | DRG 310 ==
LOC: ED 13:37 → INTOOBSV 14:43 → ERH 14:43 → OBSVTOIN 14:43 → ERH 16:30 → 2RSO 19:00 → OBSVTOIN 03-23 00:45
PROVIDERS: ADMIT Internal Medicine; ATTEND Internal Medicine
DX: R00.1 Bradycardia, unspecified (principal); I10 Essential (primary) hypertension; J45.909 Unspecified asthma, uncomplicated; N40.0 Benign prostatic hyperplasia without lower urinary tract symptoms; I65.23 Occlusion and stenosis of bilateral carotid arteries; I08.1 Rheumatic disorders of both mitral and tricuspid valves; J32.0 Chronic maxillary sinusitis; J32.2 Chronic ethmoidal sinusitis; D64.9 Anemia, unspecified; K59.00 Constipation, unspecified; R55 Syncope and collapse; R42 Dizziness and giddiness; Z79.82 Long term (current) use of aspirin; Z94.7 Corneal transplant status; Z87.891 Personal history of nicotine dependence

== ENCOUNTER 2018-10-06 13:10 | Emergency (ER) | payer MEDICARE ==
[2018-10-06 13:10] VITALS: BMI 26.6
[2018-10-06 13:35] VITALS: BP 154/78; PULSE 78; RESP 19; TEMP 99; O2SAT 98
--- NOTE | 2018-10-06 13:56 | ED PDOC ---
Arrival/HPI - General Chief Complaint: Cough, Cold, Congestion Time Seen by Provider: 10/06/18 13:35 Historian: Patient - History of Present Illness Narrative History of Present Illness (Text): 10/06/18 13:53 88 year old male, whose past medical history includes asthma and hypertension, presents to the emergency department complaining of cough, subjective fever, rhinorrhea, and sore throat that that began yesterday. Patient did not get his flu shot. Patient denies any chills, chest pain, shortness of breath, nausea, vomiting, diarrhea, urinary symptoms, back pain, neck pain, headache, dizziness, or any other complaints. PMD: Dr. Tolbert Time/Duration: 24 hours Symptom Onset: Gradual Symptom Course: Unchanged Context: Home Past Medical History - Provider Review Nursing Documentation Reviewed: Yes - Infectious Disease Hx of Infectious Diseases: None - Cardiac Hx Hypertension: Yes - Pulmonary Hx Respiratory Disorders: Yes Hx Asthma: Yes - Neurological Hx Neurological Disorder: No - HEENT Hx HEENT Disorder: Yes Other/Comment: L CORNEAL TRANSPLANT - Renal Hx Renal Disorder: No - Endocrine/Metabolic Hx Endocrine Disorders: No - Hematological/Oncological Hx Blood Disorders: No - Integumentary Hx Dermatological Disorder: Yes - Musculoskeletal/Rheumatological Hx Musculoskeletal Disorders: No - Gastrointestinal Hx Gastrointestinal Disorders: No - Genitourinary/Gynecological Hx Genitourinary Disorders: Yes Hx Prostate Problems: Yes - Psychiatric Hx Psychophysiologic Disorder: No Hx Substance Use: No - Surgical History Hx Eye Surgery: Yes - Anesthesia Hx Anesthesia: Yes Hx Anesthesia Reactions: No Hx Malignant Hyperthermia: No Family/Social History - Physician Review Nursing Documentation Reviewed: Yes Family/Social History: No Known Family HX Smoking Status: Former Smoker Hx Alcohol Use: No Hx Substance Use: No Allergies/Home Meds Allergies/Adverse Reactions: Allergies No Known Allergies Allergy (Verified 10/06/18 13:35) Home Medications: Home Meds Medication Instructions Recorded Confirmed Albuterol HFA [Ventolin HFA 90 1 puff INH BID 10/06/18 10/06/18 mcg/actuation (8 g)] Review of Systems - Physician Review All systems were reviewed & negative as marked: Yes - Review of Systems Constitutional: Fevers. absent: Other (chills) ENT: Sore Throat, Rhinorrhea Respiratory: Cough. absent: SOB Cardiovascular: absent: Chest Pain Gastrointestinal: absent: Diarrhea, Nausea, Vomiting Genitourinary Male: absent: Dysuria, Frequency, Hematuria Musculoskeletal: absent: Back Pain, Neck Pain Neurological: absent: Headache, Dizziness Physical Exam Vital Signs Reviewed: Yes Vital Signs Temp Pulse Resp BP Pulse Ox 10/06/18 13:32 99 F 78 19 154/78 H 98 Temperature: Afebrile Blood Pressure: Hypertensive Pulse: Regular Respiratory Rate: Normal Appearance: Positive for: Well-Appearing, Non-Toxic, Comfortable Pain Distress: None Mental Status: Positive for: Alert and Oriented X 3 - Systems Exam Head: Present: Atraumatic, Normocephalic Pupils: Present: PERRL Extroacular Muscles: Present: EOMI Conjunctiva: Present: Normal Mouth: Present: Moist Mucous Membranes Pharnyx: Present: ERYTHEMA. No: EXUDATE Neck: Present: Normal Range of Motion Respiratory/Chest: Present: Clear to Auscultation, Good Air Exchange. No: Respiratory Distress, Accessory Muscle Use Cardiovascular: Present: Regular Rate and Rhythm, Normal S1, S2. No: Murmurs Abdomen: No: Tenderness, Distention, Peritoneal Signs Back: Present: Normal Inspection Upper Extremity: Present: Normal Inspection. No: Cyanosis, Edema Lower Extremity: Present: Normal Inspection. No: Edema Neurological: Present: GCS=15, CN II-XII Intact, Speech Normal Skin: Present: Warm, Dry, Normal Color. No: Rashes Psychiatric: Present: Alert, Oriented x 3, Normal Insight, Normal Concentration Medical Decision Making ED Course and Treatment: 10/06/18 13:53 Impression: 88 year old male presents complaining of cough, subjective fever, rhinorrhea, and sore throat that that began yesterday. suspect viral syndrome ro pna Plan: -- Chest X-ray -- Influenza A B -- Rapid Strep -- Reassess and disposition Progress Notes: 10/07/18 08:12 pt well appearin gi nad symptoms <1 day. lungs cta. pt in nad. speaking full sentneces. has appt with pmd in am. cxr neg 10/07/18 08:13 no sirs criteria vitals stable sepsis unlikeky - RAD Interpretation Radiology Orders: 10/06/18 13:51 CHEST TWO VIEWS (PA/LAT) [RAD] Stat - Scribe Statement The provider has reviewed the documentation as recorded by the Jose Toure Provider Scribe Attestation: All medical record entries made by the Scribe were at my direction and p ersonally dictated by me. I have reviewed the chart and agree that the record accurately reflects my personal performance of the history, physical exam, medical decision making, and the department course for this patient. I have also personally directed, reviewed, and agree with the discharge instructions and disposition. Disposition/Present on Arrival - Present on Arrival Any Indicators Present on Arrival: No History of DVT/PE: No History of Uncontrolled Diabetes: No Urinary Catheter: No History of Decub. Ulcer: No History Surgical Site Infection Following: None - Disposition Have Diagnosis and Disposition been Completed?: Yes Diagnosis: Viral syndrome Disposition: HOME/ ROUTINE Disposition Time: 13:00 Condition: STABLE Discharge Instructions (ExitCare): Flu, Cough, Runny Nose, and the Common Cold Additional Instructions: return to er with worsening symptoms or concerns. Prescriptions: Oseltamivir Phosphate [Tamiflu] 75 mg PO BID #10 capsule Referrals: Dirk Tolbert DO [Primary Care Provider] - Follow up with primary Forms: [employer] ([place])
[2018-10-06 14:30] LABS: INFLUENZA A B NEGATIVE FOR FLU A/B (NEGATIVE)
--- NOTE | 2018-10-06 14:45 | RAD ---
Date of service: 10/06/2018 HISTORY: Cough COMPARISON: 03/21/2018 TECHNIQUE: Chest PA and lateral FINDINGS: LINES AND TUBES: None. LUNG AND PLEURA: The lungs are hyperinflated and there is peribronchial thickening with chronic changes in both lungs. No focal consolidation. No pleural effusion or pneumothorax. HEART AND MEDIASTINUM: The heart is not enlarged. No aortic atherosclerotic calcifications present. The hilar and mediastinal contours are within normal limits. SKELETAL STRUCTURES: The bony structures are within normal limits for the patient's age. VISUALIZED UPPER ABDOMEN: Normal. OTHER FINDINGS: None. IMPRESSION: No active pulmonary disease.
== END 2018-10-06 15:49 | disposition home or self-care (01) ==
LOC: ED 13:10
DX: B34.9 Viral infection, unspecified (principal); I10 Essential (primary) hypertension; Z87.891 Personal history of nicotine dependence

== ENCOUNTER 2018-10-26 10:38 | Emergency (ER) | payer MEDICARE ==
[2018-10-26 10:38] VITALS: BMI 26.6
--- NOTE | 2018-10-26 11:04 | ED PDOC ---
Arrival/HPI - General Chief Complaint: Trauma Time Seen by Provider: 10/26/18 10:46 Historian: Patient - History of Present Illness Narrative History of Present Illness (Text): 10/26/18 10:57 88 year old male, whose past medical history includes asthma, presents to the emergency department with left face, chest, and hand pain, status post fall, yesterday. Patient states he was walking to the store and tripped over an area of uneven ground, falling forward. Patient informs hitting the left side of his face and chest on the ground as well as his left hand as he braced himself. Patient informs of pain the left face, left chest, and left hand. Patient denies any LOC, shortness of breath, abdominal pain, leg pain, or any other complaints. Time/Duration: 24 hours Symptom Onset: Sudden Symptom Course: Unchanged Quality: Aching Activities at Onset: Light Context: Tripped Past Medical History - Provider Review Nursing Documentation Reviewed: Yes - Infectious Disease Hx of Infectious Diseases: None - Cardiac Hx Hypertension: Yes - Pulmonary Hx Respiratory Disorders: Yes Hx Asthma: Yes - Neurological Hx Neurological Disorder: No - HEENT Hx HEENT Disorder: Yes Other/Comment: L CORNEAL TRANSPLANT - Renal Hx Renal Disorder: No - Endocrine/Metabolic Hx Endocrine Disorders: No - Hematological/Oncological Hx Blood Disorders: No - Integumentary Hx Dermatological Disorder: Yes - Musculoskeletal/Rheumatological Hx Musculoskeletal Disorders: No - Gastrointestinal Hx Gastrointestinal Disorders: No - Genitourinary/Gynecological Hx Genitourinary Disorders: Yes Hx Prostate Problems: Yes - Psychiatric Hx Psychophysiologic Disorder: No Hx Substance Use: No - Surgical History Hx Eye Surgery: Yes - Anesthesia Hx Anesthesia: Yes Hx Anesthesia Reactions: No Hx Malignant Hyperthermia: No Family/Social History - Physician Review Nursing Documentation Reviewed: Yes Family/Social History: No Known Family HX Smoking Status: Former Smoker Hx Alcohol Use: No Hx Substance Use: No Allergies/Home Meds Allergies/Adverse Reactions: Allergies No Known Allergies Allergy (Verified 10/26/18 10:45) Home Medications: Home Meds Medication Instructions Recorded Confirmed Albuterol HFA [Ventolin HFA 90 1 puff INH BID 10/06/18 10/06/18 mcg/actuation (8 g)] Review of Systems - Physician Review All systems were reviewed & negative as marked: Yes - Review of Systems Respiratory: absent: SOB Cardiovascular: Chest Pain (Status post injury) Gastrointestinal: absent: Abdominal Pain Musculoskeletal: absent: Back Pain, Neck Pain, Myalgias (no leg pain) Skin: Other (Pain to left side of face and left palm) Physical Exam - Systems Exam Head: Present: Atraumatic, Normocephalic, Tenderness (to the left side of face) Pupils: Present: PERRL Extroacular Muscles: Present: EOMI Conjunctiva: Present: Normal Mouth: Present: Moist Mucous Membranes Neck: Present: Normal Range of Motion. No: MIDLINE TENDERNESS Respiratory/Chest: Present: Clear to Auscultation, Good Air Exchange. No: Respiratory Distress, Accessory Muscle Use Cardiovascular: Present: Regular Rate and Rhythm, Normal S1, S2. No: Murmurs Abdomen: No: Tenderness, Distention, Peritoneal Signs Back: Present: Normal Inspection. No: Midline Tenderness Upper Extremity: Present: Normal Inspection, Other (abrasion with ecchymosis to the left palm, no deformity ). No: Cyanosis, Edema Lower Extremity: Present: Normal Inspection. No: Edema Neurological: Present: GCS=15, CN II-XII Intact, Speech Normal Skin: Present: Warm, Dry, Normal Color. No: Rashes Psychiatric: Present: Alert, Oriented x 3, Normal Insight, Normal Concentration Medical Decision Making ED Course and Treatment: 10/26/18 11:17 Impression: 88 year old male presents for evaluation of pain s/p fall. Plan: -- CT Maxillofacial -- CMP, Trop -- CBC -- Tylenol -- X-ray left hand -- X-ray chest -- Reassess and disposition Prior Visits: Notes and results from previous visits were reviewed. Progress Notes: 10/26/18 11:19 EKG Reviewed by me, shows: sinus bradycardia @58bpm With frequent PACs Left axis deviation 10/26/18 13:[address] Tamayo who is covering for the patient's PMD. After reviewing the chart he informs patient is always celine and with frequent PACs. Dr Tamayo also reviewed his last EKG from September, which he says has not changed. Patient is well to go home. - Scribe Statement The provider has reviewed the documentation as recorded by the Gillianibe Andrea Schmitz Provider Scribe Attestation: All medical record entries made by the Scribe were at my direction and personally dictated by me. I have reviewed the chart and agree that the record accurately reflects my personal performance of the history, physical exam, medical decision making, and the department course for this patient. I have also personally directed, reviewed, and agree with the discharge instructions and disposition. Disposition/Present on Arrival - Present on Arrival History of DVT/PE: No History of Uncontrolled Diabetes: No Urinary Catheter: No History of Decub. Ulcer: No History Surgical Site Infection Following: None - Disposition Diagnosis: Contusion, Rib pain Disposition: HOME/ ROUTINE Condition: GOOD Discharge Instructions (ExitCare): Chest Pain (DC), Contusion (DC), Bruised Rib Prescriptions: Acetaminophen [Tylenol] 650 mg PO Q4 #20 capsule Forms: [employer] ([place])
[2018-10-26 11:35] LABS: BASO # 0.02 K/mm3 (0.0-2.0); BASO % 0.3 % (0.0-3.0); EOS % 15.1 % (1.5-5.0); HEMOGLOBIN 13.1 g/dL (14.0-18.0); LYMPH # 1.6 (1.2-3.4); LYMPH % 24.6 % (22.0-35.0); MEAN CELL VOLUME 90.2 fl (80.0-105.0); MEAN CORPUSCULAR HEMOGLOBIN 29.7 pg (25.0-35.0); MEAN CORPUSCULAR HGB CONC 32.9 g/dl (31.0-37.0); MEAN PLATELET VOLUME 10.4 fl (7.0-11.0); MONO # 0.4 (0.1-0.6); MONO % 6.3 % (1.0-6.0); RBC 4.41 10^6/uL (3.5-6.1); RED CELL DISTRIBUTION WIDTH 12.8 % (11.5-14.5); WHITE BLOOD COUNT 6.7 10^3/uL (4.5-11.0)
[2018-10-26 11:45] LABS: ALB/GLOB RATIO 1.1 (1.1-1.8); ALBUMIN 3.2 g/dL (3.0-4.8); ALT/SGPT 12 U/L (7-56); AST/SGOT 17 U/L (17-59); BLOOD UREA NITROGEN 14 mg/dL (7-21); CALCIUM 8.4 mg/dL (8.4-10.5); GFR NON-AFRICAN AMERICAN > 60
[2018-10-26 11:55] LABS: TROPONIN I < 0.01 ng/mL
--- NOTE | 2018-10-26 12:28 | RAD ---
Date of service: 10/26/2018 PROCEDURE: Radiographs of the Chest and Left Ribs. HISTORY: s/p fall COMPARISON: 10/06/2018 two-view chest.. TECHNIQUE: Frontal radiograph of the chest and multiple oblique radiographs of the left ribs were obtained. FINDINGS: LEFT RIBS: No fracture or focal lesion visualized. LUNGS: Clear. PLEURA: No pneumothorax or pleural fluid. CARDIOVASCULAR: Normal cardiac size. No pulmonary vascular congestion. No aortic atherosclerotic calcification present OTHER FINDINGS: None. IMPRESSION: Unremarkable radiographs of the chest and left ribs. No left rib fracture.
--- NOTE | 2018-10-26 12:29 | RAD ---
PROCEDURE: Left Hand Radiographs. HISTORY: s/p fall COMPARISON: None. FINDINGS: BONES: Surgical resection 4th digit. No acute, visible fractures. JOINTS: Normal. No osteoarthritic changes. SOFT TISSUES: Normal. OTHER FINDINGS: None. IMPRESSION: No acute findings related to/ accounting for the clinical presentation.
--- NOTE | 2018-10-26 12:42 | CT ---
Date of service: 10/26/2018 PROCEDURE: CT MAXILLOFACIAL BONES WITHOUT CONTRAST HISTORY: s/p fall COMPARISON: None available. TECHNIQUE: Contiguous axial CT images of the maxillofacial bones were obtained. Coronal and sagittal reformats were generated. Radiation dose: Total exam DLP = 850.48 mGy-cm. This CT exam was performed using one or more of the following dose reduction techniques: Automated exposure control, adjustment of the mA and/or kV according to patient size, and/or use of iterative reconstruction technique. FINDINGS: NASAL BONES: Unremarkable. ORBITS: Unremarkable. 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 MAXILLA: Unremarkable. MANDIBLE/ TEMPOROMANDIBULAR JOINTS: Unremarkable. SKULL BASE: Unremarkable. TEMPORAL BONES: Middle ears and mastoid grossly unremarkable. OTHER FINDINGS: None. IMPRESSION: No acute findings related to/ accounting for the clinical presentation. Additional benign and/or incidental findings described above.
[2018-10-26 13:17] VITALS: BP 133/76; RESP 18; TEMP 98; O2SAT 97
[2018-10-26 13:33] VITALS: PULSE 52
--- NOTE | 2018-10-27 10:27 | CARD ---
APPROVED REPORT Date of service: 10/26/2018 EKG Measurement Heart [id number] [id number] <Conclusion> Sinus bradycardia with premature atrial complexes Left anterior fascicular block Abnormal ECG
== END 2018-10-26 13:47 | disposition home or self-care (01) ==
LOC: ED 10:38
DX: S60.222A Contusion of left hand, initial encounter (principal); W01.0XXA Fall on same level from slipping, tripping and stumbling without subsequent striking against object, initial encounter; Y92.89 Other specified places as the place of occurrence of the external cause; R07.81 Pleurodynia; I10 Essential (primary) hypertension; Z87.891 Personal history of nicotine dependence